=== PATIENT | female | born 1965 | race Two or more races ===

== ENCOUNTER 2020-09-09 11:47 | Outpatient (CLI) | payer OTHER | END 2020-09-09 11:58 | disposition home or self-care (01) | LOC: RAD 11:47 | PROVIDERS: ATTEND Physical Medicine & Rehabilitation | DX: M75.31 Calcific tendinitis of right shoulder (principal) ==

== ENCOUNTER 2020-10-28 14:00 | Outpatient (CLI) | payer OTHER | END 2020-10-28 14:02 | disposition home or self-care (01) | LOC: NUCLEAR 14:00 | PROVIDERS: ATTEND Physical Medicine & Rehabilitation | DX: M81.0 Age-related osteoporosis without current pathological fracture (principal) ==

== ENCOUNTER 2021-05-19 10:07 | Outpatient (CLI) | payer OTHER | END 2021-05-19 10:10 | disposition home or self-care (01) | LOC: RX STUDY 10:07 | PROVIDERS: ATTEND Internal Medicine | DX: K22.89 Other specified disease of esophagus (principal); G47.31 Primary central sleep apnea; K21.9 Gastro-esophageal reflux disease without esophagitis ==

== ENCOUNTER 2022-01-04 06:00 | Day surgery (SDC) | payer OTHER ==
[~2022-01-04] VITALS: Ht 154.9 cm; Wt 111.6 kg
[~2022-01-04 06:00] MED LIST: BIKTARVY 30-121 EACH PO; CRESTOR5 MG PO
== END 2022-01-04 14:15 | disposition home or self-care (01) ==
LOC: CIR.AMB 06:00
PROVIDERS: ATTEND Orthopaedic Surgery Hand Surgery
DX: G56.02 Carpal tunnel syndrome, left upper limb (principal); M71.342 Other bursal cyst, left hand; Z20.822 Contact with and (suspected) exposure to COVID-19; Z88.6 Allergy status to analgesic agent; E78.5 Hyperlipidemia, unspecified; Z86.16 Personal history of COVID-19; Z99.89 Dependence on other enabling machines and devices; Z87.891 Personal history of nicotine dependence; G47.33 Obstructive sleep apnea (adult) (pediatric)

== ENCOUNTER 2022-07-21 15:26 | Outpatient (CLI) | payer OTHER | END 2022-07-21 15:31 | disposition home or self-care (01) | LOC: RAD 15:26 | PROVIDERS: ATTEND Physical Medicine & Rehabilitation | DX: M76.61 Achilles tendinitis, right leg (principal) ==

== ENCOUNTER 2022-08-31 12:57 | Outpatient (CLI) | payer OTHER | END 2022-08-31 13:11 | disposition home or self-care (01) | LOC: RAD 12:57 | PROVIDERS: ATTEND Physical Medicine & Rehabilitation | DX: M54.59 Other low back pain (principal); M54.16 Radiculopathy, lumbar region; M54.12 Radiculopathy, cervical region | CPT/HCPCS: 72148 ==

== ENCOUNTER 2023-02-08 08:48 | Outpatient (CLI) | payer OTHER | END 2023-02-08 08:53 | disposition home or self-care (01) | LOC: RAD 08:48 | PROVIDERS: ATTEND Physical Medicine & Rehabilitation | DX: M17.12 Unilateral primary osteoarthritis, left knee (principal); Z88.6 Allergy status to analgesic agent ==

== ENCOUNTER 2023-03-29 08:17 | Outpatient (CLI) | payer OTHER | END 2023-03-29 08:20 | disposition home or self-care (01) | LOC: RAD 08:17 | DX: N20.1 Calculus of ureter (principal) ==

== ENCOUNTER 2023-05-03 09:49 | Outpatient (CLI) | payer OTHER | END 2023-05-03 09:54 | disposition home or self-care (01) | LOC: RAD 09:49 | PROVIDERS: ATTEND Urology | DX: N20.1 Calculus of ureter (principal) ==

== ENCOUNTER 2023-05-17 07:31 | Outpatient (CLI) | payer OTHER | END 2023-05-17 07:35 | disposition home or self-care (01) | LOC: RAD 07:31 | DX: N20.1 Calculus of ureter (principal); Z01.818 Encounter for other preprocedural examination ==

== ENCOUNTER 2025-04-10 09:49 | Outpatient (CLI) | payer OTHER | END 2025-04-10 09:50 | disposition home or self-care (01) | LOC: NUCLEAR 09:49 | PROVIDERS: ATTEND Physical Medicine & Rehabilitation | DX: M81.0 Age-related osteoporosis without current pathological fracture (principal) ==

== ENCOUNTER 2025-04-10 11:11 | Outpatient (CLI) | payer OTHER | END 2025-04-10 11:13 | disposition home or self-care (01) | LOC: MAMO-SONO 11:11 | DX: N60.11 Diffuse cystic mastopathy of right breast (principal); N60.12 Diffuse cystic mastopathy of left breast; Z12.31 Encounter for screening mammogram for malignant neoplasm of breast ==